=== PATIENT | male | born 1985 | race Caucasian/White ===

== ENCOUNTER 2020-07-20 11:32 | Emergency (ER) | payer OTHER ==
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
[2020-07-20 14:15] VITALS: BP 117/100; TEMP 97.8; O2SAT 99
== END 2020-07-20 12:53 | disposition home or self-care (01) ==
LOC: ER 11:32
DX: M54.2 Cervicalgia (principal); R51.9 Headache, unspecified; V49.49XA Driver injured in collision with other motor vehicles in traffic accident, initial encounter
CPT/HCPCS: 70450; 72125; 99283